=== PATIENT | female | born 2000 | race Caucasian/White ===

== ENCOUNTER 2025-04-12 09:31 | Emergency (ER) | payer BC ==
[~2025-04-12] VITALS: Ht 162.6 cm; Wt 77.0 kg
[2025-04-12 09:33] VITALS: PULSE 86; O2SAT 98
[2025-04-12 09:38] VITALS: BP 124/92; RESP 18; TEMP 36.8; O2SAT 98
[2025-04-12] MEDS ORDERED: IBUP-2028 MT (10:23)
[2025-04-12] MEDS ORDERED: TOPUD PO (10:23)
== END 2025-04-12 10:50 | disposition home or self-care (01) ==
LOC: ER 09:31
DX: S63.602A Unspecified sprain of left thumb, initial encounter (principal); Z88.0 Allergy status to penicillin; W08.XXXA Fall from other furniture, initial encounter; Y93.89 Activity, other specified; Y92.89 Other specified places as the place of occurrence of the external cause; Y99.8 Other external cause status
CPT/HCPCS: 73130; 81025; 99283